=== PATIENT | female | born 1960 | race Caucasian/White ===

== ENCOUNTER → 2019-08-21 12:17 | Outpatient (CLI) | payer BC, SELFPAY ==
--- NOTE | ~2019-08-21 | MR_ITS ---
EXAMINATION: MR shoulder RT wo con DATE: 08/21/2019 13:04 INDICATION: Right shoulder pain TECHNIQUE: Magnetic resonance imaging (MRI) of the right shoulder was performed without intravenous c ontrast. Sequences included axial PD-weighted FS FSE, coronal oblique PD-weighted FS FSE, coronal obl ique T2-weighted FS FSE, sagittal PD-weighted FS FSE, and sagittal T1-weighted SE. COMPARISON: Right shoulder radiographs dated 08/10/2019 FINDINGS: Evaluation mildly limited by small amount of motion blurring on all sequences. Coracoacromial arch: The acromion undersurface is curved in morphology (type II) with lateral downsloping. Small subacromi al spur at the acromial insertion of the normal coracoacromial ligament. Moderate acromioclavicular o steoarthritis with small inferiorly directed osteophytes at the lateral head of the clavicle. Rotator cuff: Moderate supraspinatus and mild infraspinatus tendinopathy. Bursal sided tear measuring 8 mm AP along the anterior facet insertion of the anterior supraspinatus tendon with fluid signal interspersed wit h disorganized lax appearing frayed tendon material extending up to 9 mm medially from the lesser tub erosity footplate. The tear appears to involve greater than one half of the tendon thickness and coul d not exclude development of the articular side of the tendon with full-thickness perforation althoug h no discrete full-thickness tear defect is appreciated. Additional separate appearing small articula r sided tear along the critical zone of the more posterior supraspinatus tendon measuring 4 mm AP and 7 mm left to right located approximately 2 cm medial from the lesser tuberosity footplate and involv ing less than one half of the tendon thickness. Moderate subscapularis tendinopathy without discrete tear. The teres minor tendon is normal. Normal rotator cuff muscle bulk and signal. Biceps tendon, glenoid labrum and glenohumeral cartilage: Full thickness tear of the long head biceps tendon with thickening of the intra-articular portion of the tendon with proximal tear margin at the cephalad aspect of the intertubercular groove and with th ickened and frayed distal tear margin retracted into the fluid-filled tendon sheath below the level o f the intertubercular groove. Glenoid labrum is normal. Glenohumeral cartilage is normal. Fluid: Small glenohumeral joint effusion with mild synovitis at the axillary recess. Proportional small amou nt of fluid in the long head biceps tendon sheath. No loose osteochondral bodies. Small amount of flu id in the subacromial/subdeltoid bursa which could be due to mild to moderate bursitis or extension o f glenohumeral joint fluid through a possible full-thickness perforation of the supraspinatus tendon. Bones: Bone alignment is normal. No fracture or pathologic marrow replacing process. IMPRESSION: 1. Small deep bursal sided tear at the insertion of the distal anterior supraspinatus tendon with sep arate appearing small mild articular sided tear at the more posterior supraspinatus tendon. 2. Moderate subscapularis and mild infraspinatus tendinopathy without discrete tear. 3. Tendinopathy and full-thickness tear of the long head biceps tendon. 4. Moderate acromioclavicular osteoarthritis. Reviewed, dictated and finalized at location A. IMPRESSION: 1. Small deep bursal sided tear at the insertion of the distal anterior suprasp inatus tendon with separate appearing small mild articular sided tear at the mo re posterior supraspinatus tendon. 2. Moderate subscapularis and mild infraspinatus tendinopathy without discrete tear. 3. Tendinopathy and full-thickness tear of the long head biceps tendon. 4. Moderate acromioclavicular osteoarthritis.
== END ==
PROVIDERS: PCP Internal Medicine; Visit Provider Orthopaedic Surgery
DX: M25.511 Pain in right shoulder (principal); S46.811A Strain of other muscles, fascia and tendons at shoulder and upper arm level, right arm, initial encounter; M75.81 Other shoulder lesions, right shoulder; M19.011 Primary osteoarthritis, right shoulder
CPT/HCPCS: 73221

== ENCOUNTER 2019-10-10 07:20 | Outpatient (CLI) | payer BC, SELFPAY ==
--- NOTE | ~2019-10-10 | MM_ITS ---
EXAMINATION: MM screening [facility] BI w meena HISTORY: Screening mammogram TECHNIQUE: Craniocaudal and mediolateral oblique 3-D tomosynthesis images were obtained and synthetic 2-D images were generated. CAD analysis was submitted and interpreted. COMPARISON: 10/04/2018, 10/17/2017, 07/21/2016 BREAST PARENCHYMAL COMPOSITION: There are scattered areas of fibroglandular density. FINDINGS: There is no evidence of suspicious mass, calcification, or architectural distortion to sugg est malignancy in either breast. There has been no suspicious interval change. IMPRESSION: 1. No mammographic evidence of malignancy. 2. Recommend routine screening mammography in one year. BI-RADS Category 1: Negative Reviewed, dictated and finalized at location A.
== END 2019-10-10 07:21 | disposition home or self-care (01) ==
LOC: ANHIMG 07:23
PROVIDERS: PCP Internal Medicine; Visit Provider Nurse Practitioner Obstetrics & Gynecology
DX: Z12.31 Encounter for screening mammogram for malignant neoplasm of breast (principal)
CPT/HCPCS: 77063; 77067

== ENCOUNTER 2020-10-10 09:17 | Outpatient (CLI) | payer BC, SELFPAY ==
--- NOTE | ~2020-10-10 | MM_ITS ---
EXAMINATION: MM screening [facility] BI w [facility] HISTORY: Screening mammogram TECHNIQUE: Craniocaudal and mediolateral oblique 3-D tomosynthesis images were obtained and synthetic 2-D images were generated. CAD analysis was submitted and interpreted. COMPARISON: 10/10/2019, 10/04/2018, 09/28/2017 BREAST PARENCHYMAL COMPOSITION: There are scattered areas of fibroglandular density. FINDINGS: There is no evidence of suspicious mass, calcification, or architectural distortion to sugg est malignancy in either breast. There has been no suspicious interval change. IMPRESSION: 1. No mammographic evidence of malignancy. 2. Recommend routine screening mammography in one year. BI-RADS Category 1: Negative Reviewed, dictated and finalized at location A.
== END 2020-10-10 09:18 | disposition home or self-care (01) ==
LOC: ANHIMG 09:19
PROVIDERS: PCP Internal Medicine; Visit Provider Nurse Practitioner Obstetrics & Gynecology
DX: Z12.31 Encounter for screening mammogram for malignant neoplasm of breast (principal)
CPT/HCPCS: 77063; 77067

== ENCOUNTER 2021-02-04 10:42 | Outpatient (CLI) | payer BC, SELFPAY ==
[2021-02-04 12:14] LABS: Anion Gap 9 mmol/L (8-16); Blood Urea Nitrogen 23 mg/dL (7-17); Calcium 9.6 mg/dL (8.4-10.2); Carbon Dioxide 28 mmol/L (22-30); Chloride 103 mmol/L (98-107); Estimated Glomerular Filt Rate 50; Glucose 125 mg/dL (65-110); Potassium 3.1 mmol/L (3.4-5.0); Sodium 140 mmol/L (137-145)
== END 2021-02-04 10:43 | disposition home or self-care (01) ==
PROVIDERS: PCP Family Medicine; Visit Provider Anesthesiology
DX: Z01.818 Encounter for other preprocedural examination (principal); N18.30 Chronic kidney disease, stage 3 unspecified
CPT/HCPCS: 36415; 80048

== ENCOUNTER 2021-02-10 01:54 | Day surgery (SDC) | payer BC, SELFPAY ==
[2021-01-31 15:43] VITALS: BMI 38.8
--- NOTE | 2021-02-10 08:05 | WPDANESEPPF ---
Anes - Initial Pre Proc Eval Procedure: Operation Date: 02/10/21 14:00 Proposed Procedures p Hysteroscopy with Biopsy of Endometrium or Polypectomy - Mak Barron MD Date/Time: 02/10/21 08:05 Surgeon: Mak Barron MD Pre Op Diagnosis: polyp of corpus uteri Patient Data Age: 60 Gender: F Height: 1.55 m Weight: 93.18 kg Allergies Allergy/AdvReac Type Severity Reaction Status Date / Time ANA Inhibitors Allergy Mild Rash Verified 02/10/21 12:15 amlodipine Allergy Mild Rash Verified 02/10/21 12:15 amoxicillin Allergy Mild RASH Verified 02/10/21 12:15 Home Medications Medication Instructions Recorded Confirmed Type bhronxruuwdf-Ya-njlo-minerals 1 tablet PO DAILY 08/10/19 02/10/21 History cholecalciferol (vitamin D3) 25 25 mcg PO DAILY 11/26/20 02/10/21 History mcg (1,000 unit) capsule valsartan 160 mg tablet 160 mg PO DAILY #90 tablet 11/26/20 01/31/21 Rx cranberry 450 mg PO DAILY 01/31/21 02/10/21 History hydrochlorothiazide 50 mg PO DAILY 01/31/21 01/31/21 History simvastatin 10 mg PO DAILY 01/31/21 01/31/21 History Patient hx anesthesia problems: none Family hx anesthesia problems: none [facility] Past Medical History Medical History (Updated 02/10/21 @ 08:06 by Claude Noel DO) HLD (hyperlipidemia) HTN (hypertension) Hypertensive kidney disease with CKD stage III Uterine bleeding Vision abnormalities Surgical History Surgical History History of foot surgery Family History Family History Father Hypertension Family history of diabetes mellitus in first degree relative Diabetes mellitus Mother Hypertension Family history of diabetes mellitus in first degree relative Diabetes mellitus Grandparent Diabetes mellitus Heart disease Hypertension Other Cerebrovascular accident Family history of arthritis Family history of malignant neoplasm Social History Social History Smoking status: Former smoker Tobacco type: cigarettes Second hand tobacco smoke exposure: No Smoking end date: 05/31/92 Additional smoking assessment comments: 1 pack per week Alcohol intake: never Substance use: never Substance use type: does not use Living arrangements: with family Gender identity (if verbalized by the patient): Female Spiritual care concerns: No Agree to blood products: Yes Anes - Eval Final PreProcedure Day of Procedure 02/10/21 08:05 Patient weight: obese Heart: regular rate and rhythm Lungs: clear to auscultation and normal air movement Airway: Mallampati scale class II Neurological: alert and oriented Last oral intake: >/= 8 hours ASA classification: III Emergent: no Anesthetic plan: proceed Anesthesia type and monitoring: general GIVS and standard monitoring Informed Consent: The patient's anesthetic plan and its attendant risks and benefits were discussed with the patient/family/POA. Questions were solicited and answers provided to the satisfaction of the patient/family/POA.
[2021-02-10 12:05] VITALS: BP 152/82; PULSE 66; RESP 14; TEMP 36.2; O2SAT 100
[2021-02-10 12:14] VITALS: BMI 38.0
[2021-02-10] MEDS: ACETAMINOPHEN 500 MG TABLET 1000 MG PO (12:18)
[2021-02-10] MEDS: LACTATED RINGERS 1,000 ML 30 ML IV CONT (12:30)
--- NOTE | 2021-02-10 12:39 | WPDHPUPDATE1 ---
History and Physical Update Update Date/Time: 02/10/21 12:39 History and Physical has been reviewed, including an updated exam of the patient. There are NO changes in the patient's condition. Risks, benefits, and alternatives have been discussed and questions answered. Patient agrees to proceed with procedure.
[2021-02-10 13:39] VITALS: BP 145/78; PULSE 67; RESP 14; O2SAT 98
--- NOTE | 2021-02-10 13:45 | W.PM.PROC2 ---
Procedure Note - Detailed Date of Procedure 02/10/21 Pre-op Diagnosis polyp of corpus uteri Post-op Diagnosis same Procedure Performed Hysteroscopy D&C with polypectomy x2 Surgeon Mak Barron MD Anesthesia MAC Indications abnormal uterine bleeding, endometrial lesion Findings Large endometrial polyp, a 2nd large polyp that was likely endocervical. Normal vulva vagina and cervix. Description of Procedure the patient was taken the operating room. She was prepped and draped in the dorsal lithotomy position after induction of mac anesthesia. A speculum was placed in the vagina. The cervix was grasped with a tenaculum. The cervix was dilated about 1 cm. The hysteroscope was inserted. The intrauterine cavity and endocervix were evaluated. Hysteroscopic scissors were used to cut across the base of the fundal polyp. It was removed with a ring forcep after being nearly transected at its base. Likewise there was an endocervical polyp that was transected at its base partially and removed with a ring forcep as well. Hysteroscope was withdrawn. A medium-size curette was used to curettage all the surfaces were within the endometrial cavity. the sample was collected on Telfa and sent to pathology. The hysteroscope was reinserted and the above findings were noted. Patient tolerated the procedure well. The speculum and tenaculum were removed. She was taken recovery room in stable condition. Sponge lap and needle counts were correct x2. Estimated Blood Loss 40 Drains No Packing No Pathology yes Complications No immediate complications Condition stable Disposition PACU
[2021-02-10 14:00] VITALS: BP 134/83; PULSE 58; RESP 14; O2SAT 96
[2021-02-10] MEDS: oxyCODONE HCL (*CRX) 5 MG TAB IR PO (14:25)
[2021-02-10 14:30] VITALS: BP 160/88; PULSE 57; RESP 14; O2SAT 100
[2021-02-10 15:00] VITALS: BP 165/88; PULSE 59; RESP 14; O2SAT 98
== END 2021-02-10 15:05 | disposition home or self-care (01) ==
PROVIDERS: PCP Family Medicine; Visit Provider Obstetrics & Gynecology
PROC: 0U5B8ZZ Destruction of Endometrium, Via Natural or Artificial Opening Endoscopic (ICD-10-PCS; CPT 58563; principal; 2021-02-10 14:00)
DX: N84.0 Polyp of corpus uteri (principal); N71.1 Chronic inflammatory disease of uterus; I12.9 Hypertensive chronic kidney disease with stage 1 through stage 4 chronic kidney disease, or unspecified chronic kidney disease; N18.30 Chronic kidney disease, stage 3 unspecified; E78.5 Hyperlipidemia, unspecified; Z87.891 Personal history of nicotine dependence; E66.9 Obesity, unspecified; Z68.38 Body mass index [BMI] 38.0-38.9, adult
CPT/HCPCS: 58558; 88305; A9270; J2704; J3010; J7030; J7120

== ENCOUNTER 2021-11-04 07:17 | Outpatient (CLI) | payer BC, SELFPAY ==
--- NOTE | ~2021-11-04 | MM_ITS ---
EXAMINATION: MM screening [facility] BI w meena HISTORY: Screening mammogram TECHNIQUE: Craniocaudal and mediolateral oblique 3-D tomosynthesis images were obtained and synthetic 2-D images were generated. CAD analysis was submitted and interpreted. COMPARISON: 10/10/2020, 10/10/2019, 10/04/2018 BREAST PARENCHYMAL COMPOSITION: There are scattered areas of fibroglandular density. FINDINGS: There is no suspicious mass, calcification, or architectural distortion to suggest malignan cy in either breast. There has been no suspicious interval change. IMPRESSION: 1. No mammographic evidence of malignancy. 2. Recommend routine screening mammography in one year. BI-RADS Category 1: Negative Reviewed, dictated and finalized at location A.
== END 2021-11-04 07:18 | disposition home or self-care (01) ==
LOC: ANHIMG 07:21
PROVIDERS: PCP Family Medicine; Visit Provider Nurse Practitioner Obstetrics & Gynecology
DX: Z12.31 Encounter for screening mammogram for malignant neoplasm of breast (principal)
CPT/HCPCS: 77063; 77067

== ENCOUNTER 2023-02-23 12:19 | Emergency (ER) | payer BC, SELFPAY ==
[2023-02-23 12:39] VITALS: BP 213/82; PULSE 61; RESP 16; TEMP 37.1; O2SAT 100
--- NOTE | 2023-02-23 12:43 | ECG_ITS ---
Measurements Intervals [place] Rate: 60 P: 182 SC: 190 QRS: 207 QRSD: 103 T: 186 QT: 428 QTc: 428 Interpretive Statements SINUS RHYTHM LIMB LEAD REVERSAL BORDERLINE R WAVE PROGRESSION, ANTERIOR LEADS BORDERLINE T WAVE ABNORMALITY- ANT/INF LEADS BASELINE ARTIFACT- II, V4 BORDERLINE ECG NO PREVIOUS ECG AVAILABLE FOR COMPARISON Electronically Signed On 02-23-2023 13:02:30 CDT by Dante Caldera D.O.
[2023-02-23 13:22] LABS: Basophils Percent Auto 0.3 % (0.2-1.2); Eosinophils Absolute Auto 0.1 K/mm3 (0-0.3); Eosinophils Percent Auto 1.2 % (0-4.4); Hematocrit 40.3 % (37.0-47.0); Hemoglobin 13.2 g/dL (12.0-15.0); Immature Granulocyte Absolute 0.05 K/mm3 (0.00-0.031); Immature Granulocyte Percent A 0.8 % (0-0.5); Lymphocytes Absolute Auto 1.62 K/mm3 (0.9-3.2); Lymphocytes Percent Auto 24.6 % (18.3-44.2); Mean Corpuscular HGB Conc 32.8 g/dl (32-36); Mean Corpuscular Hemoglobin 29.2 pg (26-34); Mean Corpuscular Volume 89.2 fl (80-100); Mean Platelet Volume 11.2 fl (7.4-10.4); Monocytes Absolute Auto 0.4 K/mm3 (0.1-0.6); Monocytes Percent Auto 5.3 % (2.6-8.5); Neutrophils Absolute Auto 4.5 K/mm3 (1.3-6.7); Neutrophils Percent Auto 67.8 % (45.5-73.1); Platelet Count Result 225 k/mm3 (150-375); Red Blood Count 4.52 M/mm3 (4.2-5.4); Red Cell Distribution Width 13.2 % (11.5-14.5); White Blood Count 6.6 K/mm3 (4.5-10.0)
[2023-02-23 13:31] LABS: Alanine Aminotransferase 37 U/L (6-35); Albumin Level 4.3 g/dL (3.5-5.1); Alkaline Phosphatase 76 U/L (38-126); Anion Gap 8 mmol/L (8-16); Aspartate Amino Transferase 28 U/L (14-36); Bilirubin,Total 0.6 mg/dL (0.2-1.3); Blood Urea Nitrogen 18 mg/dL (7-17); Calcium 9.1 mg/dL (8.4-10.2); Carbon Dioxide 25 mmol/L (22-30); Chloride 107 mmol/L (98-107); Estimated CRCL calculation 47 ml/min; Estimated Glomerular Filt Rate 50; Glucose 99 mg/dL (65-110); Potassium 3.6 mmol/L (3.4-5.0); Sodium 140 mmol/L (137-145)
[2023-02-23 13:43] LABS: Troponin I < 0.012 ng/mL (0.000-0.034)
--- NOTE | 2023-02-23 14:44 | ED.GENADULT ---
HPI - General Adult General Chief complaint: Recheck/Abnormal Lab/Rx <Alyssa Chong September, - Last Filed: 02/23/23 14:50> Stated complaint: hypertension <Alyssa Chong September, - Last Filed: 02/23/23 14:50> Time Seen by Provider: 02/23/23 14:38 <Alyssa Chong September, - Last Filed: 02/23/23 14:50> Source: patient <Amy Antonio PA-C - Last Filed: 02/24/23 00:32> Mode of arrival: ambulatory <Amy Antonio PA-C - Last Filed: 02/24/23 00:32> Limitations: no limitations <Amy Antonio PA-C - Last Filed: 02/24/23 00:32> History of Present Illness HPI narrative: Abby Cruz is a 62 y/o female who presents with PMHx of HTN/ HLD/ Afib/ who presents with complaints of elevated b/p. She states that she was worried about her kidneys so she stopped taking her hydrochlorothiazide 1 week ago. She states she was doing well last week but then noticed her blood pressure to be elevated today. She reports feeling a little heart palpitations yesterday that only lasted a few minutes denies any chest pain at this time. When she noticed her elevated blood pressure she took her hydrochlorothiazide this morning. Currently denies chest pain / SOB / palpitations <Alyssa Chong September, - Last Filed: 02/23/23 14:50> Abby Cruz is a 62 y/o female who presents with PMHx of HTN/ HLD/ irregular heartbeat/ who presents with complaints of elevated b/p. She states that she was worried about her kidneys so she stopped taking her hydrochlorothiazide 1 week ago. She states she was doing well last week but then noticed her blood pressure to be elevated today. She reports feeling a little heart palpitations yesterday that only lasted a few minutes denies any chest pain at this time. When she noticed her elevated blood pressure she took her hydrochlorothiazide this morning. Currently denies chest pain / SOB / palpitations Patient denied having any symptoms yesterday or today that made her feel she needed to check her blood pressure. She states she just wanted to see how her blood pressure was reacting to being off the medicine. She remains asymptomatic at this time. Denies dizziness, lightheadedness, vision changes, chest pain, shortness of breath, palpitations, increased swelling. Patient did not talk to her doctor about stopping the medication. She is willing to restart the medication. <Amy Antonio PA-C - Last Filed: 02/24/23 00:32> Related Data Home medications: Home Medications Medication Instructions Recorded Confirmed cholecalciferol (vitamin D3) 25 25 mcg PO DAILY 11/26/20 10/20/22 mcg (1,000 unit) capsule aspirin 81 mg tablet,delayed 81 mg PO DAILY 09/08/22 10/20/22 release (Adult Low Dose Aspirin) <Alyssa Chong September, - Last Filed: 02/23/23 14:50> Allergies/adverse reactions: Allergies Allergy/AdvReac Type Severity Reaction Status Date / Time ANA Inhibitors Allergy Mild Rash Verified 02/23/23 12:20 amlodipine Allergy Mild Rash Verified 02/23/23 12:20 amoxicillin Allergy Mild RASH Verified 02/23/23 12:20 <Alyssa Chong September,N - Last Filed: 02/23/23 14:50> Review of Systems Review of Systems: All systems reviewed & are unremarkable except as noted in HPI and below <Alyssa Jacinto - Last Filed: 02/23/23 14:50> Constitutional: Constitutional: Reports as per HPI <Alyssa Chong September, - Last Filed: 02/23/23 14:50> [facility] Past Medical History Medical History: Medical History EKG abnormality Heart palpitations HLD (hyperlipidemia) HTN (hypertension) Hypertensive kidney disease with CKD stage III Screening for thyroid disorder Uterine bleeding Vision abnormalities <Alyssa Jacinto - Last Filed: 02/23/23 14:50> Surgical History Surgical History: Surgical History History of foot surgery <Alyssa JacintoAugN - Last File
[2023-02-23 14:45] VITALS: BP 178/87; PULSE 60; RESP 18; O2SAT 100
[2023-02-23 16:52] VITALS: BP 165/83; PULSE 57; RESP 16; O2SAT 99
[2023-02-23 18:09] VITALS: BP 159/78; RESP 18; O2SAT 100
== END 2023-02-23 18:11 | disposition home or self-care (01) ==
PROVIDERS: Emergency Medicine; Emergency Provider Physician Assistant; PCP Family Medicine
DX: I12.9 Hypertensive chronic kidney disease with stage 1 through stage 4 chronic kidney disease, or unspecified chronic kidney disease (principal); N18.30 Chronic kidney disease, stage 3 unspecified; Z91.148 Patient's other noncompliance with medication regimen for other reason; E78.5 Hyperlipidemia, unspecified; Z79.82 Long term (current) use of aspirin; Z87.891 Personal history of nicotine dependence; Z79.84 Long term (current) use of oral hypoglycemic drugs
CPT/HCPCS: 36415; 80053; 84484; 85025; 93005; 99284

== ENCOUNTER 2023-05-19 07:57 | Outpatient (CLI) | payer BC, SELFPAY ==
--- NOTE | ~2023-05-19 | MM_ITS ---
EXAMINATION: MM screening [facility] BI w meena HISTORY: .. TECHNIQUE: Craniocaudal and mediolateral oblique 3-D tomosynthesis images were obtained and synthetic 2-D images were generated. CAD analysis was submitted and interpreted. COMPARISON: 11/2021, 10/10/2020, 10/10/2019 bilateral screening mammogram examinations BREAST PARENCHYMAL COMPOSITION: There are scattered areas of fibroglandular density. FINDINGS: There is no evidence of suspicious mass, calcification, or architectural distortion to sugg est malignancy in either breast. There has been no suspicious interval change. IMPRESSION: 1. No mammographic evidence of malignancy. 2. Recommend routine screening mammography in one year. BI-RADS Category 1: Negative Reviewed, dictated and finalized at location A. [employer]
== END 2023-05-19 07:58 | disposition home or self-care (01) ==
LOC: ANHIMG 08:00
PROVIDERS: PCP Family Medicine; Visit Provider Nurse Practitioner Obstetrics & Gynecology
DX: Z12.31 Encounter for screening mammogram for malignant neoplasm of breast (principal)
CPT/HCPCS: 77063; 77067

== ENCOUNTER 2023-07-21 10:20 | Outpatient (RCR) | payer BC, SELFPAY ==
--- NOTE | 2023-07-23 17:16 | PTOPEVDC ---
Assessment and note entered by Adele Pereyra, PT Thank you for referring Abby Cruz to [facility].? An evaluation has been completed. No further treatment is needed. Evaluation Information Assessment Status Evaluation Diagnosis right wrist pain, right shoulder pain Subjective Information Pt reports she was cleaning her friends house, got startled, fell, and landed on the right hand. Didn't have pain initially but two weeks after had increased pain. Had soreness in her side and x-ray right flank but this is better. States does have a history of rotator cuff tear but doesn't remember which side. Pt reports she has a high pain tolerance Discomfort with opening twist off caps from plastic bottles, pain with cleaning her friends home. Has not iced, braced, or had prescription medication. Once or twice took Tylenol. Reports pain is not to bad, but is always there and annoying. Assessment PT Clinical Summary Pt presents with diagnosis of right shoulder and wrist pain after a fall without fracture. Pt demos full AROM and mild deficits in posture and RTC strength however would prefer to focus on wrist function at this time. Her reports of difficulty with opening items and with use during her work suggestive of weakness and instability. Pt also shows swelling today at ulnar side of wrist and decreased ROM. Pt was educated on benefits of Occupational therapy with Certified Hand Therapist , as well as DME wrist brace and cryotherapy while awaiting appointment with OT. Thus patient will be discharged from PT with plans to go to OT for wrist deficits. Plan of Care PT Services Indicated No
== END 2023-07-27 09:32 | disposition home or self-care (01) ==
LOC: ANHHIPT 10:20
PROVIDERS: PCP Family Medicine; Visit Provider Family Medicine
DX: M25.511 Pain in right shoulder (principal); M25.531 Pain in right wrist
CPT/HCPCS: 97161; 97530

== ENCOUNTER 2024-08-08 07:18 | Outpatient (CLI) | payer BC, SELFPAY ==
--- NOTE | ~2024-08-08 | MM_ITS ---
EXAMINATION: MM screening kristin BI w meena HISTORY: Screening mammogram TECHNIQUE: Craniocaudal and mediolateral oblique 3-D tomosynthesis images were obtained and synthetic 2-D images were generated. CAD analysis was submitted and interpreted. COMPARISON: 05/19/2023, 11/04/2021, 10/10/2020 BREAST PARENCHYMAL COMPOSITION:Not Dense. The breasts are almost entirely fatty FINDINGS: Small low-density bilateral breast masses are similar to prior exams. No suspicious mass, c alcification, or architectural distortion are identified in either breast to suggest malignancy. Ther e has been no suspicious interval change. IMPRESSION: No mammographic evidence of malignancy. Recommend routine screening mammography in one year. BI-RADS Category 2: Benign finding(s). Reviewed, dictated and finalized at location .
--- OUTSIDE RECORDS SUMMARY | 2024-08-08 07:25 | XMS_ITS | Clinical Summary ---
Author Organization [facility] Address [address] [place] [id number] Care Team Providers Care Improvement Engineer Name Role Phone Unavailable Primary Care Provider Unavailabl e Social History Tobacco Use Types Packs/Day Years Used Date Smoking Tobacco: Never Assessed Comments Unknown Sex and Gender Information Value Date Recorded Sex Assigned at Not on file Legal Sex Female 5:55 PM CDT Gender Identity Not on file Sexual Orientation Not on file Last Filed Vital Signs Vital Sign Reading Time Taken Comments Blood Pressure 154/100 09/05/2012 8:12 AM CDT Pulse 81 09/05/2012 8:12 AM CDT Temperature - - Respiratory Rate - - Oxygen Saturation - - Inhaled Oxygen Concentration - - Weight 81.6 kg (180 lb) 09/05/2012 8:12 AM CDT Height - - Body Mass Index - - Plan of Treatment Health Maintenance Due Date Last Done Comments Cervical Cancer Screening Pa p Smear (Age 30 to 64) Every 3 Years 1959 Colorectal Cancer Screening Colonoscopy (10 Years) 1959 Annual Physical 12/01/1962 Hepatitis C 12/01/1977 DTaP, Tdap and Td Vaccines ( 1 - Tdap) 12/01/1978 Cervical Cancer Screening Pa p with HPV Testing (Age 30 to 64) Every 5 Years 12/01/1989 Cervical Cancer Screening with HPV 12/01/1989 Mammogram Screening 1999 Zoster Vaccines (1 of 2) 12/01/2009 COVID-19 Vaccine (2023-2 5 season) 2024 Influenza Adult (#1) 2024 RSV Immunization or 60+ Years (1 - 1-dose 75+ series) 12/01/2034 Meningococcal B Vaccine Aged Out No l onger eligible based on patient's age to complete this topic Meningococcal Vaccine Aged Out No fito archie eligible based on patient's age to complete this topic Pneumococcal Vaccine: Pediat rics (0 to 5 Years) and At-Risk Patients (6 to 64 Years) Aged Out No longer eligible b ased on patient's age to complete this topic RSV Immunizations Under 20 Months Aged Out No longer eligible based on patient's age to complete this topic
--- OUTSIDE RECORDS SUMMARY | 2024-08-08 07:25 | XMS_ITS | Data Portability ---
Author Organization [facility] [place] Address [address] [place] [address] [address] Assessment Encounter Date Assessment Date Assessment LastModified by Organization Details LastModified Time 10/15/2021 10/15/2021 Annual gynecological exam performed. Patient will come back in a year unless there are new symptoms. [email or web address] Not available 10/15/2021 17:33:38 01/28/2023 01/28/2023 Annual gynecological exam performed. Patient will come back in a year unless there are new symptoms. Not available 01/28/2023 09:19:44 Plan of Treatment Reminders Order Date Submit Date Provider Last Modified By Organization Details Last Modified Time Details Appointments None recorded. Lab None recorded. Referral None recorded. Procedures None recorded. Surgeries None recorded. Imaging MAMMO, screening, digital, bilateral 2022 023 [facility], [address], [address], [place], [address], 15:42:29 Medication Orders None recorded. Patient TargetsNo targets recorded. Patient InstructionsNo instructions recorded. Reason for Referral None Reported. Results Created Date Observation Date Name Description Value Unit Range Abnormal Flag Note LastModifiedBy Organization Detail LastModifiedTime 12/18/19 21 12/17/2020 SURGI TAIWO PATHO LOGY surgical pathology ([facility] SEE RESULT S BELOW CASE REPOR T: Surgi taiwo Patho logy Repor t Case: [id number] Autho oliva Schmitt stan: Coral Barron MD Colle cted: 12/17 1409 Order ing Locat ion: [place] Patho logy Recei lenard: 12/18 0101 Patho logis t: Juarez Courtney MD Speci men: Endom etriu m, EMB FINAL DIAGN OSIS: Endom etriu m, biops y: -Frag ments morph ologi bri sugge stive of benig n endom etria l polyp . -Supe rfici al strip s of inact eugenio endom etriu m. -No endom etria l hyper plasi a or malig nant tumor ident ified . Elect gaurang soliz d by Juarez Courtney MD on 2020 at 2:38 PM ----- ----- ----- ----- ----- ----- ----- ----- ----- ----- ----- ----- ----- ----- ----- ----- ----- ---- CLINI TAIWO INFOR MATIO N: not provi ded MICRO SCOPI C DESCR IPTIO N: A micro scopi c exami natio n was perfo rmed. GROSS DESCR IPTIO N: A. Endom etriu m. The speci men is label ed with the patie nt's name, demog raphi cs and EMB . Recei lenard in forma eduardo is a 2.5 x 2.5 x 0.2 [address] ag[address] gate of mucus and dark red tissu e. The entir e speci men is submi tted in one casse tte. Gross ed by Jonelle bustillos Not Available [facility] (Lab) [address], [place], [address], 12/18/2020 15:41:25 10/16/19 22 10/15/2021 IMAGE GUIDE D PAP AND HPV REGAR DLESS image guided Pap, HPV regardless of Pap result SEE RESULT S BELOW CASE REPOR T: Cytol ogy Gynec ologi taiwo Repor t Case: [id number] Autho oliva dietz Provi stan: Coral Barron MD Colle cted: 10/15 1744 Order ing Locat ion: [place] Patho logy Recei lenard: 10/16 0220 First Scree n: Jazmine Desai ret, CT Rescr een: Luis Carrera , CT Speci men: Scree mike Pap - Image d, Cervi x STATE MENT OF ADEQU ACY: Satis facto ry for evalu ation Trans forma tion zone compo nent prese nt FINAL DIAGN OSIS: Negat eugenio for Intra epith elial Lesnaeem n or Lucille alvarado (NIL) . Elect davidnikhil hernandez heydi d by Luis Carrera , CT on 2021 at 4:16 PM ----- ----- ----- ----- ----- ----- ----- ----- ----- ----- ----- ----- ----- ----- ----- ----- ----- ---- HPV RESUL TS: HPV mRNA E6/E7 : No HPV mRNA Detec srinivas NOTE: This high risk HPV mRNA assay detec ts fourt een high- risk HPV types (16, 18, 31, 33, 35, 39, 45, 51, 52, 56, 58, 59, 66, 68) witho ut diffe renti ation . COMME NT: Note: This speci men was revie wed by a Cytot echno logis t and/o r Patho logis t (as indic ated in this repor t) after evalu ation using the Thinp rep Imagi ng Syste m. CLINI TAIWO INFOR MATIO N: Menst rual Statu s: LMP (if appli cable ): Clini taiwo Histo ry/Pr eviou s Pap: Type of Neopl ary (if appli cable ): Signi fican t Clini taiwo Findi ngs: Other Histo ry: Hormo nancie (if appli cable ): PAP EDUCA CHASE L NOTE: The Pap Test is a scree mike test with an inher ent false negat eugenio rate. Liqui d-bas ed sampl ing may decre ase, but will not elimi jose, false negat eugenio resul ts. A negat eugenio resul t does not precl ude the prese nce and/o r devel opmen t of disea se, since the prese nce of abnor mal cells in the sampl e depen ds on the locat ion of the lesio n and sampl ing techn ique. Nikos nued regul ar scree mike is the best metho d of cance r preve ntion . If repor srinivas cytol ogic findi ng do not corre late with physi taiwo and/o r histo rical findi ngs, furth er inves tigat ion is recom domingo d, as clini bri lofton nted. Not Available [facility] (Lab) [address], [place], [address], 10/21/2021 17:19:09 12/04/19 21 12/03/2020 US, pelvi s No observ ation record ed. [email or web address] [place] [address], [place], [address], 12/03/2020 18:12:16 12/04/19 21 12/03/2020 US, trans vagin al No observ ation record ed. [email or web address] [place] [address], [place], [address], 12/03/2020 18:12:05 12/04/19 21 12/03/2020 US, pelvi s No observ ation record ed. [facility] [address], [place], [address], 12/30/2020 18:05:32 11/14/19 22 MAMMO , scree mike, bilat eral No observ ation record ed. [email or web address] Not Available 2022 10:52:29 Result Notes None recorded. Problems Name Problem SNOMED Code Status Onset Date Resolution Date Notes Provider Name and Address Organization Details Recorded Time SNOMED CT Concept Completed 201510/21/2020 Encntr for band manager exam (general) (routine) w/o abn findings; Practice ID: [id number] Veronique aguirre [facility] 1 16:01:17 Screenin g for malignan t neoplasm of rectum Completed 201510/21/2020 Encounter for screening for malignant neoplasm of rectum;Pr actice ID: [id number] Veronique Rodriguez [facility] [address] 16:01:[address] Concept Completed 201610/21/2020 Encntr for general adult medical exam w/o abnormal findings; Practice ID: 0001 Veronique aguirre [facility] 16:01:16 Dysuria 53012125 Completed 201810/21/2020 Dysuria;P ractice ID: 0001 Veronique Rodriguez [facility] 16:00:55 Screenin g for malignan t neoplasm of cervix Completed 201210/21/2020 Screening for malignant neoplasms of the cervix;Re corded Elsewhere : No Locati on: [facility] So urce: EHR Chron ic: N Practic e ID: 0001 Bill able Time: 08:30:00 AM Veronique Rodriguez [facility] 16:01:12 Proteinu poncho [id number] Completed 201210/21/2020 Proteinur ia;Record ed Elsewhere : No Locati on: [facility] So urce: EHR Chron ic: N Practic e ID: 0001 Bill able Time: 08:30:00 AM Veronique Rodriguez [facility] 16:01:10 Adult health examinat ion Completed 201410/21/2020 ROUTINE MEDICAL EXAM;Joshua rded Elsewhere : No Locati on: [facility] So urce: EHR Chron ic: N Practic e ID: 0001 Bill able Time: 03:15:00 PM Veronique aguirre [facility] 1 16:00:50 Body mass index 30+ - obesity 462882595 Completed 201610/21/2020 Body mass index (BMI) 36.0-36.9 , adult;Rec orded Elsewhere : No Locati on: [facility] So urce: EHR Chron ic: N Practic e ID: 0001 Bill able Time: 11:00:00 AM Veronique Rodriguez [facility] 1 16:00:52 Speciali d medical examinat ion Completed 201410/21/2020 ROUTINE CYTOLOGY SUPERVISOR EXAMINATI ON;Record ed Elsewhere : No Locati on: [facility] So urce: EHR Chron ic: N Practic e ID: 0001 Bill able Time: 03:15:00 PM Veronique Rodriguez [facility] 1 16:01:20 Hypertro phy of uterus [id number] Completed 201410/21/2020 Hypertrop hy of uterus;Re corded Elsewhere : No Locati on: [facility] So urce: EHR Chron ic: N Practic e ID: 0001 Bill able Time: 03:00:00 PM Veronique Rodriguez [facility] 1 16:00:57 Problem Notes None recorded. Procedures Surgical History Date Name Laterality Status Provider Name and Address Organization Details Recorded Time 11/14/19 22 Date of Last Mammogram completed Catherine Bradshaw [facility] 01/28/2023 09:20:55 10/16/19 22 Date of Last Pap Smear completed Shanna Goodman [facility] 10/15/2021 17:34:05 02/11/20 21 HYSTEROSCOPY, SURGICAL, WITH BIOPSY OF ENDOMETRIUM AND/OR POLYPECTOMY (SURG) completed Tasneem Oneal [facility] 02/11/2021 10:28:41 12/18/19 21 Endometrial Biopsy completed Kervin Barron MD [address], [place], [address], [place] [facility] 12/17/2020 22:12:13 07/17/19 16 completed Veronique Rodriguez [facility] 10/21/2020 16:03:52 05/31/19 15 procedure on foot completed Veronique Rodriguez [facility] 10/21/2020 16:07:10 Imaging Results Imaging Date Name Status LastModified by Organization Details LastModified Time 12/03/2020 US, pelvis completed [email or web address] [place] [address], [place], [address], 12/03/2020 18:12:16 12/03/2020 [facility]inal [email or web address] [address], [place], [address], 12/03/2020 18:12:05 12/03/2020 US, pelvis completed layran Luz [address], [place], [address], 12/30/2020 18:05:32 11/13/2021 MAMMO, screening, bilateral completed [email or web address] Information not available 12/04/2022 10:52:29 Procedure Notes None recorded. Medical Equipment None Reported. Allergies Allergen ID Allergen Name Allergen Category Reaction Reaction Severity Criticality Documentation Date Start Date Code Code System Note Provider Name and Address Organization Details Recorded Time 65779 Product containin g penicilli n (product) medicatio n Not available Not available Not available 05/17/2020 47564 8001 SNOMED Comme nt: [facility]at [facility]; Not Available [facility] 0 14:24:21 Medications Name Sig Start Date Stop Date Status Note LastModified by Organization Details LastModified Time ropinirol e 1 mg tablet TAKE 1 TABLET BY MOUTH EVERY DAY 10/15 completed Not Available Not Available Not Available aspirin 325 mg tablet take 1 tablet by oral route every day 04/12 completed Prescrib ed Elsewher e: Yes [facility] By: obdulio covarrubias DateTime : 05/10/20 13 08:30:00 AM Not Available Not Available Not Available hydrochlo rothiazid e 50 mg tablet TAKE 1/2 TABLET BY MOUTH EVERY DAY 01/28 completed Not Available Not Available Not Available simvastat in 10 mg tablet TAKE 1 TABLET BY MOUTH EVERY DAY active Not Available Not Available No t Available valsartan 80 mg tablet 11/25 completed Not Available Not Available Not Available sulfameth oxazole 800 mg-trimet hoprim 160 mg tablet TAKE 1 TABLET BY MOUTH EVERY 12 HOURS FOR 7 DAYS 09/27 completed Not Available Not Available Not Available triamtere ne 37.5 mg-hydroc hlorothia zide 25 mg capsule take 1 capsule by oral route every day 04/12 completed Prescrib ed Elsewher e: Yes [facility] By: obdulio covarrubias DateTime : 06/25/19 16 09:30:00 AM Not Available Not Available Not Available ropinirol e 0.25 mg tablet take 1 tablet by oral route 3 times every day 10/21 completed Prescrib ed Elsewher e: Yes Loca tion: [facility] odify By: obdulio Chung ter DateTime : 04/12/20 17 11:00:00 AM Not Available Not Available Not Available cranberry fruit 400 mg capsule 01/27 completed Prescrib ed Elsewher e: Yes Loca tion: [facility] odify By: abner pandaunter DateTime : 08/17/19 19 08:30:00 AM Not Available Not Available Not Available hydrochlo rothiazid e 25 mg tablet TAKE 1 TABLET BY MOUTH DAILY active Not Available Not Available No t Available triamtere ne 75 mg-hydroc hlorothia zide 50 mg tablet take 1 tablet by oral route every day 06/25 completed Prescrib ed Elsewher e: No Locat ion: [facility] odify By: [email or web address] trick En counter DateTime : 05/10/20 13 08:30:00 AM Not Available Not Available Not Available methylpre dnisolone 4 mg tablets in a dose pack 10/21 completed Not Available Not Available Not Available valsartan 160 mg tablet TAKE 1 TABLET BY MOUTH EVERY DAY active Not Available Not Available No t Available Vitamin C 500 mg capsule,e xtended release active Prescrib ed Elsewher e: Yes Loca tion: [facility] odify By: obdulio covarrubias DateTime : 04/12/20 17 11:00:00 AM Not Available Not Available Not Available Benicar 20 mg tablet take 1 tablet by oral route every day 04/12 completed Prescrib ed Elsewher e: Yes Loca tion: [facility] odify By: obdulio covarrubias DateTime : 06/21/19 15 03:15:00 PM Not Available Not Available Not Available valsartan 40 mg tablet take 2 tablet by oral route every day 10/21 completed Prescrib ed Elsewher e: Yes Loca tion: [facility] odify By: abner pandauntritu DateTime : 08/17/19 19 08:30:00 AM Not Available Not Available Not Available metformin ER 750 mg tablet,ex tended release 24 hr TAKE 1 TABLET BY MOUTH DAILY active Not Available Not Available No t Available metoprolo l tartrate 25 mg tablet TAKE 1/2 TABLET BY MOUTH TWICE A DAY active Not Available Not Available No t Available nitrofura ntoin monohydra te/macroc rystals 100 mg capsule Take 1 pill by mouth twice daily for 7 days 10/21 completed Not Available Not Available Not Available metoprolo l tartrate (bulk) 01/28 completed Not Available Not Available Not Available Vitamin D3 10 mcg (400 unit) capsule active Prescrib ed Elsewher e: Yes Loca tion: [facility] odify By: obdulio covarrubias DateTime : 04/12/20 17 11:00:00 AM Not Available Not Available Not Available vitamin B12 1,000 mcg-folic acid 400 mcg sublingua l lozenge 01/27 completed Prescrib ed Elsewher e: Yes Loca tion: [facility] odify By: abner pandauntritu DateTime : 08/22/19 09:45:00 AM Not Available Not Available Not Available Vitals Date Recorded Body height Body mass index (BMI) Body weight Systolic blood pressure Diastolic blood pressure Systolic blood pressure Diastolic blood pressure Provider Name and Address Organization Details Last Updated DateTime 1 152.4 cm 40 kg/m2 55223.4 4 g 173 mm[Hg] 111 mm[Hg] 160 mm[Hg] 100 mm[Hg] [facility] 1 16:33:52 Date Recorded Body height Body mass index (BMI) Body weight Systolic blood pressure Diastolic blood pressure Provider Name and Address Organization Details Last Updated DateTime 02/17/2021 152.4 cm 39.8 kg/m2 28287.84 g 151 mm[Hg] 85 mm[Hg] [facility] 1 09:27:21 Date Recorded Body height Body mass index (BMI) Body weight Systolic blood pressure Diastolic blood pressure Provider Name and Address Organization Details Last Updated DateTime 10/15/2021 152.4 cm 39.6 kg/m2 16932.25 g 152 mm[Hg] 93 mm[Hg] [facility] 2 17:41:27 Date Recorded Body height Body mass index (BMI) Body weight Systolic blood pressure Diastolic blood pressure Provider Name and Address Organization Details Last Updated DateTime 01/28/2023 152.4 cm 37.7 kg/m2 30003.33 g 165 mm[Hg] 82 mm[Hg] Catherine Bradshaw [facility] 3 09:19:57 Date Recorded Systolic blood pressure Diastolic blood pressure Provider Name and Address Organization Details Last Updated DateTime 01/28/2023 132 mm[Hg] 80 mm[Hg] Linda Marie, NP-BC [address], [place], [address], [facility] 01/28/2023 09:36:24 Social History Question Answer Notes LastModified by Organizat ion Details LastModified Time Tobacco Smoking Status Never Smoker Thania aguirre, [facility] 01/28/2023 09:02:36 What Is Your Level Of Alcohol Consumption? Occasional Information not available 10/21/2020 Are You Blind Or Do You Have Difficulty Seeing? No Information n ot available 10/21/2020 What Is Your Level Of Caffeine Consumption? Moderate Information not available 10/21/2020 In The 14 Days Before Symptom Onset, Have You Had Close Contact With A Laboratory-confirm ed COVID-19 While That Case Was Ill? No Information n ot available 01/28/2023 In The 14 Days Before Symptom Onset, Have You Had Close Contact With A Person Who Is Under Investigation For COVID-19 While That Person Was Ill? No Information not available 01/28/2023 Have You Been To An Area Known To Be High Risk For COVID-19? No Information not available 01/28/2023 Are You Deaf Or Do You Have Serious Difficulty Hearing? No Information not available 10/21/2020 What Type Of Diet Are You Following? REGULAR Information n ot available 10/21/2020 Do You Use Your Seat Belt Or Car Seat Routinely? Yes Information not available 10/21/2020 Do You Have Smoke And Carbon Monoxide Detectors In Your Home? Yes Information not available 10/21/2020 Do You Feel Stressed (tense, Restless, Nervous, Or Anxious, Or Unable To Sleep At Night)? [id number] Information not available 10/21/2020 Do You Use Any Illicit Or Recreational Drugs? No Information not available 10/21/2020 Do You Use Sunscreen Routinely? Yes Information not available 10/21/2020 Sex: Unknown Functional Status Question Answer Note LastModified by Organizat ion Details LastModified Time Are you able to walk? YESWOREST Information not available 10/21/2020 What is your exercise level? Occasional Information not available 10/21/2020 Mental Status None recorded. Family History Relationship Description Onset Age of this Age Resolved Age Notes LastModified by Organization Details LastModified Time Mother Diabetes mellitus Not available 2022 09:20:08 Mother Hypertensive disorder Not available 2022 09:20:08 Mother Cyst of ovary Not available 2022 09:20:08 Father Diabetes mellitus Not available 2022 09:20:08 Father Hypertensive disorder Not available 2022 09:20:08 Maternal Grandmother Diabetes mellitus Not available 2022 09:20:08 Maternal Grandmother Hypertensive disorder Not available 2022 09:20:08 Paternal Grandmother Diabetes mellitus Not available 2022 09:20:08 Paternal Grandmother Hypertensive disorder Not available 2022 09:20:08 Sister Diabetes mellitus Not available 2022 09:20:08 Sister Hypertensive disorder Not available 2022 09:20:08 Maternal Grandfather Malignant tumor of lung Not available 2022 09:20:08 Paternal Grandfather Malignant tumor of lung Not available 2022 09:20:08 Paternal Aunt Malignant tumor of lung Not available 2022 09:20:09 Medical History Condition Response Diabetes Y Heart Problems Y Other Y Hypertension Y Gynecological History Statement/Question Response Abnormal Pap N Date of Last Mammogram 11/13/2021 STIs/STDs N HPV Vaccine N 07/17/2015 Current Control Method Menopause If Post Menopausal, Age at Menopause 53 Date of Last Colonoscopy Sexually Active? N Menses Monthly N Date of Last Pap Smear 10/15/2021 Sexual Problems? N Obstetrics History GPAL:G 2 P 2 0 0 2 Type Value Full Term 2 Living 2 Total 2 Past Encounters Encounter ID Performer Location Encounter Start Date Encounter Closed Date Diagnosis/Indication Diagnosis SNOMED-CT Code Diagnosis ICD10 Code Diagnosis Note [id number] [address] [address] 09/22/2019 11:39:14 09/22/2019 17:17:37 Acute urinary tract infection 652218480 N39.0 Normal dip. Per SP, Macrobid sent. , rma [id number] Linda Marie [facility] [address] [address] 09/27/2020 15:13:19 09/27/2020 16:38:43 Urinary tract infectious disease 73542991 N39.0 NURSES VISIT URINE SENT CX MACROBID SENT WILL CALL WITH RESULTS [id number] [address] [address] 10/22/2020 09:16:19 10/22/2020 10:09:37 Gynecologic examination 50355299 Z01.419 Take Calcium with Vitamin D 12-1500mg daily. Do monthly self breast exams. It is advised to get annual flu shot in the fall and she could obtain at [facility] or [facility] clinic. If you haven't received the Tdap vaccine in the last 10 years you should obtain one as well. Have mammogram yearly, bone density every 2-3 years and colonoscop y every 5-10 years depending on findings and history. Engage in daily exercise of low impact aerobic exercise 45-60 minutes 4-5 times weekly. Avoid tobacco and illicit drugs as well as using moderation with alcohol intake less than 1-2 8 oz beverages daily. This lifestyle behavior pattern will lead to less health conditions and longer life span. If BMI greater than 25 weight watchers or dietary consult advised. Questions have been answered. Patient appears to understand instructio ns, but if you have any further questions call or respond to this email Pap/hpv Hx wnl Pap/hpv 07/2018 wnl Pap/hpv q3-5yrs per asccp unless otherwise indicated. Mammo done Dexa ordered Colon-colo guard 2019 wnl due q3yrs (advised let PCP know about testing). Postmenopa usal osteopenia [id number] M85.80 Atrophy of vagina 125952 009 N95.2 Wants to try vegetable based moisturize r first. If feels need additional therapy will call & can send in topical estrogen cream. Premarin topically use daily x 2wks, then, 2-3x/wk for 3mos; will RTO x 3mos. Counseled on medication R/B's, Most common side effects, & use. All questions [place]. [id number] Kervin Barron MD [place] [address],[place] [address] 11/25/2020 17:14:28 11/25/2020 20:44:18 Postmenopausal bleeding 56743969 N95.0 this patient is a 59-year-ol d female who presents for vaginal bleeding. She had an episode of vaginal bleeding. It was moderate. It lasted a single day. She denies any pain. She denies any nausea, vomiting, fever, chills. We discussed this finding in symptom. We talked about the implicatio ns of postmenopa usal bleeding. We talked about the evaluation . Reviewed 1st get pelvic ultrasound . Then we agreed to endometria l biopsy with pelvic exam. She will follow up shortly after pelvic ultrasound . [id number] Sadia Rodriguez [place] [address],[place] [address] 12/03/2020 14:15:14 12/03/2020 15:15:30 Postmenopausal bleeding 97340864 N95.0 this patient is a 59-year-ol d female who presents for vaginal bleeding. She had an episode of vaginal bleeding. It was moderate. It lasted a single day. She denies any pain. She denies any nausea, vomiting, fever, chills. We discussed this finding in symptom. We talked about the implicatio ns of postmenopa usal bleeding. We talked about the evaluation . Reviewed 1st get pelvic ultrasound . Then we agreed to endometria l biopsy with pelvic exam. She will follow up shortly after pelvic ultrasound . [id number] Kervin Barron MD [place] [address],[place] [address] 12/17/2020 11:48:26 12/18/2020 22:09:08 Postmenopausal bleeding 56721192 N95.0 Endometria l biopsy was performed. She tolerated the procedure well. Will follow-up on the results. [id number] Kervin Barron MD [place] [address],[place] [address] 01/03/2021 16:14:09 01/05/2021 15:38:52 Polyp of corpus uteri 92993708 N84.0 this patient is a 60-year-ol d female with endometria l polyp. We have agreed to perform hysterosco py D&C with possible polypectom y. She understand s the risks, benefits, and alternativ es. She has completed the informed consent process and is ready to proceed. [id number] Kervin Barron MD [place] [address],[place] [address] 02/11/2021 10:17:07 02/11/2021 10:18:38 [id number] Kervin Barron MD [place] [address],[place] [address] 02/17/2021 09:20:14 02/17/2021 11:14:40 Polyp of corpus uteri [id number] N84.0 This patient is a 60 y/o female presents for follow up on endometria l polyp. Hysterosco py with endometria l polypectom y was performed. She has no complaints . We reviewed her pathology report. It was entirely benign. She has no complaints . She will follow up as needed. [id number] Kervin Barron MD [place] [address],[place] [address] 10/15/2021 17:25:57 10/15/2021 18:25:31 Gynecologic examination [id number] Z01.419 This patient is here for her annual exam. A thorough history was taken. A physical exam was performed. Age appropriat e routine health screening was ordered, performed, and discussed. Recommende d testing was ordered. She was asked to follow up in one year. She will be informed of any test results. Mammogram - scheduled Colonoscop y CA - done Bone Density - na Cholestero l - ordered Pap - today [id number] ZHAO Laws-[facility] [address] [address] 01/28/2023 09:02:13 01/28/2023 10:08:39 Gynecologic examination [id number] Z01.419 Take Calcium with Vitamin D 12-1500mg daily. Do monthly self breast exams. It is advised to get annual flu shot in the fall and she could obtain at [facility] or [facility] care clinic. If you haven't received the Tdap vaccine in the last 10 years you should obtain one as well. Have mammogram yearly, bone density every 2-3 years and colonoscop y every 5-10 years depending on findings and history. Engage in daily exercise of low impact aerobic exercise 45-60 minutes 4-5 times weekly. Avoid tobacco and illicit drugs as well as using moderation with alcohol intake less than 1-2 8 oz beverages daily. This lifestyle behavior pattern will lead to less health conditions and longer life span. If BMI greater than 25 weight watchers or dietary consult advised. Questions have been answered. Patient appears to understand instructio ns, but if you have any further questions call or respond to this email Pap/hpv potentiall y last pap/hpv testing next year 2023.STD Screen declinedGe netic Screen discussedC olon Screen UTD PCPDexa Screen UTD PCPRoutine Labs UTD PCP Screening mammography 24 [id number] Z12.31 Health Concerns Section Related Observation LastModified by Organization Detai ls LastModified Time None Recorded Concern Status LastModified by Organization Details LastModified Time None Recorded Advance Directives Directive None Recorded Payers Encounter Date Sequence Insurance Name Policy Number Policy Bell Covered Member ID Bell Member ID Guarantor Name 01/03/2021 1 [place] [id number] Jose Francisco Medina Giger [id number] Abby Villareal Giger 02/10/2021 1 [place] [id number] Jose Francisco Medina Giger [id number] Abby Villareal Giger 02/17/2021 1 [place] [id number] Jose Francisco Medina Giger [id number] Abby Villareal Giger 10/15/2021 1 [place] [id number] Jose Francisco Landiser [id number] Abby Landiser 01/28/2023 1 [place] [id number] Jose Francisco Medina Giger [id number] Abby Cruz Notes Date Note Type Note Provider Name and Address Organization Details Recorded Time 01/03/2021 text/html This patient is a 60-year-old female with a 1.5 cm endometrial polyp. We have agreed to perform hysteroscopy D&C with possible polypectomy. The patient understands the procedure. The procedure was described to the patient in great detail. the patient also understands the risks. The risks were also explained in detail. She understands that injuries May occur during surgery. She understands these injuries can result in hospitalization, more surgery, and severe illness. She understands there is risk of hemorrhage and infection. Kervin Barron MD [address], [place], [address], [facility] 01/03/2021 17:13:04 02/17/2021 text/html This patient is a 60 y/o female presents for follow up on endometrial polyp. Hysteroscopy with endometrial polypectomy was performed. She has no complaints. We reviewed her pathology report. It was entirely benign. She has no complaints. She will follow up as needed. Kervin Barron MD [address], [place], [address], [facility] 02/17/2021 10:07:49 10/15/2021 text/html Annual GYNReport ed bypatient.History: no gynecologic complaints Urinary symptoms:No hematuria; No incontinence Vulva:No genital lesion Vagina:Normal vaginal discharge Breast:No breast pain; No breast lump; No nipple discharge Menopausal Symptoms:No menopausal symptoms Psychological symptoms:No depression; No anxiety Preventive measures:Encourage self breast examination; Encourage regular exercise Kervin Barron MD [address], [place], [address], [facility] 10/15/2021 18:21:29 01/28/2023 text/html Annual Nc Machinist Post-MenopausalRep orted bypatient.Menopaus al Symptoms:no menopausal symptoms; normal vaginal lubrication Vaginal Bleeding:history of menopause having occurred; no history of post menopausal bleeding Urinary Symptoms:no hematuria; no incontinence; no nocturia; no urinary frequency Vulva:no genital lesion; no vulvar atrophy Vagina:normal vaginal discharge; no vaginal atrophy Breast:no breast lump; no nipple discharge; no breast pain Sexual Complaints:no sexual complaints Psychological Symptoms:no depression; no anxiety Preventive Measures:encourage regular mammograms starting age 40; encourage self breast examination; encourage regular exercise; encourage no tobacco use; needs to schedule mammogram; history of recent colonoscopy ZHAO Laws- [address], [place], [address], [facility] 01/28/2023 09:37:57 OBGyn Episode Ob Episode Information Episode Created Date Number of Fetuses Patient Bloodtype Patient rh Status Prepregnancy Weight lbs Domestic Partner Domestic Partner Phone Father Name Barge Captain Status 10/22/19 21 1 CLOSED Fetus Data First Name Last Name Admitted to NICU Weight (g) Sex Living Outcome Pediatric Complications Fetus ID Race Codes Race Delivery Type 3572.03 7 F Full Term [id number] Vaginal Delivery Nawaf Calculation Initial Nawaf Date Initial Exam Date Initial Exam Provider Initial Ultrasound Date Last Menstrual Period Date Ultra Sound Weeks Gestation 0 Eighteen To Twenty Week Nawaf Update Ultra Sound Date Fundal Height At Umbil Quickening Date Ultra Sound Latest Weeks Gestation Final Nawaf Confirmed By Final Nawaf Confirmed Date Final Nawaf Date Ultra Sound Latest Days Gestation 0 0 Menstrual History Last Menstrual Date Menses Monthly On Bcp Conception Prior Menses Frequency Hcg Plus Date Menarche Onset Age Delivery Information Delivery Date Delivery Type Labor Anesthesia Weeks Gestation Incision Type Labor Labor Length Hrs Delivered By Post Complications Tubal Sterilization Discharge Date Comments 4 Monalisa Discharge Information Feeding Method Contraceptive Method Maternal HG B and HCT Levels Ob Episode Information Episode Created Date Number of Fetuses Patient Bloodtype Patient rh Status Prepregnancy Weight lbs Domestic Partner Domestic Partner Phone Father Name Barge Captain Status 10/22/19 21 1 CLOSED Fetus Data First Name Last Name Admitted to NICU Weight (g) Sex Living Outcome Pediatric Complications Fetus ID Race Codes Race Delivery Type 3486.76 1704 M Full Term [id number] Vaginal Delivery Nawaf Calculation Initial Nawaf Date Initial Exam Date Initial Exam Provider Initial Ultrasound Date Last Menstrual Period Date Ultra Sound Weeks Gestation 0 Eighteen To Twenty Week Nawaf Update Ultra Sound Date Fundal Height At Umbil Quickening Date Ultra Sound Latest Weeks Gestation Final Nawaf Confirmed By Final Nawaf Confirmed Date Final Nawaf Date Ultra Sound Latest Days Gestation 0 0 Menstrual History Last Menstrual Date Menses Monthly On Bcp Conception Prior Menses Frequency Hcg Plus Date Menarche Onset Age Delivery Information Delivery Date Delivery Type Labor Anesthesia Weeks Gestation Incision Type Labor Labor Length Hrs Delivered By Post Complications Tubal Sterilization Discharge Date Comments 8 Terrance Discharge Information Feeding Method Contraceptive Method Maternal HG B and HCT Levels
--- OUTSIDE RECORDS SUMMARY | 2024-08-08 07:25 | XMS_ITS | Clinical Summary ---
Author Organization [facility] Address [address] [place] [address] Phone Care Team Providers Care Technical Director Name Role Phone Unavailable Primary Care Provider Unavailabl e Medications Medication Sig Dispensed Refills Start Date End Date Status olmesartan (BENICAR) 20 MG tablet 10/27/2013 Active cholecalciferol (VITAMIN D-3) 2000 units capsule 10/27/2013 Active simvastatin (ZOCOR) 10 MG tablet 1 dialy at dinner or hs 11 05/05/2016 Active rOPINIRole XL (REQUIP XL) 2 MG 24 hr tablet 1 tablet (2 mg) orally daily 0 05/11/2016 Active Active Problems Problem Noted Date Diagnosed Date Chronic kidney disease, stage 3 (moderate) 03/19 Hypertensive chronic kidney disease with stage 1 through stage 4 chronic kidney disease, or unspecified chronic kidney disease 03/19/2014 Pain in joint 11/02/2013 Family History Medical History Relation Comments Hypertensive disorder Father Diabetes mellitus Mother Hypertensive disorder Mother Kidney disease Mother Heart disease Relative Anemia Neg Hx Cerebrovascular accident Neg Hx Dyslipidemia Neg Hx Kidney stone Neg Hx Malignant neoplastic disease Neg Hx Relation Status Comments Father Mother Relative Social History Tobacco Use Types Packs/Day Years Used Date Smoking Tobacco: Never Sex and Gender Information Value Date Recorded Sex Assigned at Not on file Gender Identity Not on file Sexual Orientation Not on file Last Filed Vital Signs Vital Sign Reading Time Taken Comments Blood Pressure 134/70 06/23/2017 12:01 AM PUPPY SITTER Pulse 72 06/23/2017 12:01 AM PUPPY SITTER Temperature 36.4 C (97.6 F) 06/23/2017 12:01 AM PUPPY SITTER Respiratory Rate - - Oxygen Saturation - - Inhaled Oxygen Concentration - - Weight 89.4 kg (197 lb) 06/23/2017 12:01 AM PUPPY SITTER Height 157.5 cm (5' 2 ) 06/23/2017 12:01 AM PUPPY SITTER Body Mass Index 36.03 06/23/2017 12:01 AM PUPPY SITTER Plan of Treatment Not on file
== END 2024-08-08 07:19 | disposition home or self-care (01) ==
LOC: ANHIMG 07:22
PROVIDERS: PCP Nurse Practitioner Family; Visit Provider Obstetrics & Gynecology
DX: Z12.31 Encounter for screening mammogram for malignant neoplasm of breast (principal)
CPT/HCPCS: 77063; 77067